=== PATIENT | female | born 1960 | race Caucasian/White ===

== ENCOUNTER 2021-03-22 16:08 | Emergency (ER) | payer OTHER ==
[~2021-03-22 16:08] MED LIST: MACROBID 100 M100 MG PO; ZOFRAN4 MG PO
== END 2021-03-22 21:08 | disposition home or self-care (01) ==
LOC: FER 16:08
DX: U07.1 COVID-19 (principal); I10 Essential (primary) hypertension; Z88.5 Allergy status to narcotic agent; Z88.2 Allergy status to sulfonamides; Z88.6 Allergy status to analgesic agent; Z79.899 Other long term (current) drug therapy; Z85.3 Personal history of malignant neoplasm of breast
CPT/HCPCS: 71045; M0243; Q0244